=== PATIENT | male | born 1975 | race Hispanic/Latino ===

== ENCOUNTER 2021-06-29 10:00 | Emergency (ER) | payer BC ==
[~2021-06-29] VITALS: Ht 180.3 cm; Wt 144.7 kg
[~2021-06-29 10:00] MED LIST: ATOR20TA65 PO; METF-444 PO; METO-391 PO
[2021-06-29 10:59] VITALS: BP 146/92
[2021-06-29] MEDS ORDERED: HYDROCODONE/ACETAMINOPHEN 5/325 MG TAB PO SCH (12:00)
[2021-06-29] MEDS ORDERED: PROC5TAB54 PO (12:02)
== END 2021-06-29 12:19 | disposition home or self-care (01) ==
LOC: EDH 10:00
DX: G43.909 Migraine, unspecified, not intractable, without status migrainosus (principal); I10 Essential (primary) hypertension; E66.01 Morbid (severe) obesity due to excess calories; Z20.822 Contact with and (suspected) exposure to COVID-19; E11.9 Type 2 diabetes mellitus without complications; Z68.41 Body mass index [BMI] 40.0-44.9, adult; Z79.84 Long term (current) use of oral hypoglycemic drugs; Z79.899 Other long term (current) drug therapy
CPT/HCPCS: 87635; 99283; C9803